=== PATIENT | male | born 1975 | race Caucasian/White ===

== ENCOUNTER 2018-08-17 11:55 | Emergency (ER) | payer OTHER ==
[~2018-08-17] VITALS: Ht 188 cm; Wt 117.9 kg
[~2018-08-17 11:55] MED LIST: AMLODIPINE BESY10 MG PO; ASPIRIN EC81 M1 PO; HYDROCHLOROTH12.5 MG PO; HYDROCODON-ACE1 EAC5 PO; LISINOPRIL30 MG PO; PROTONIX40 M2 PO; SIMVASTATIN40 MG PO
[2018-08-17 12:43] LABS: ABSOLUTE NEUTROPHILS 4.7 thou/uL (1.4-8.2); BASOPHILS 0.4 % (0.0-2.0); EOSINOPHILS 4.4 % (0.0-3.0); HEMATOCRIT 42.1 % (42.0-52.0); HEMOGLOBIN 14.6 gm/dL (14.0-18.0); LYMPHOCYTES 31.1 % (24.0-44.0); MCH 29.2 pg (26.0-34.0); MCHC 34.6 g/dL (28.0-37.0); MCV 84.4 fL (80.0-100.0); MONOCYTES 6.5 % (1.0-8.0); PLATELET COUNT 280 thou/uL (150-400); POLYS 57.6 % (36.0-66.0); RBC 4.99 mil/uL (4.50-6.00); RDW 12.9 % (10.5-14.5); WBC 8.1 thou/uL (4.0-11.0)
[2018-08-17 12:46] LABS: ANION GAP 8 mmol/L (7-16); BUN 9 mg/dL (7-18); CALCIUM 9.5 mg/dL (8.5-10.1); CHLORIDE 100 mmol/L (98-107); CO2 28 mmol/L (21-32); CREATININE 1.1 mg/dL (0.7-1.3); GLUCOSE 100 mg/dL (74-106); POTASSIUM 4.1 mmol/L (3.5-5.1); SODIUM 136 mmol/L (136-145)
[2018-08-17 12:52] LABS: ALBUMIN 4.1 g/dL (3.4-5.0); DIRECT BILIRUBIN < 0.1 mg/dL (<0.1-0.3); LIPASE 92 U/L (73-393); SGOT 26 U/L (15-37); SGPT 39 U/L (30-65); TOTAL BILIRUBIN 0.4 mg/dL (<0.1-1.0)
[2018-08-17 14:43] VITALS: BP 140/81
[2018-08-17] MEDS ORDERED: BENTYL 20 MG TA20 M1 PO (15:10)
== END 2018-08-17 15:25 | disposition home or self-care (01) ==
LOC: ER 11:55
PROVIDERS: Emergency Medicine
DX: K62.5 Hemorrhage of anus and rectum (principal); I10 Essential (primary) hypertension; E78.00 Pure hypercholesterolemia, unspecified; K21.9 Gastro-esophageal reflux disease without esophagitis; G47.30 Sleep apnea, unspecified; E78.5 Hyperlipidemia, unspecified; Z87.891 Personal history of nicotine dependence; Z88.1 Allergy status to other antibiotic agents; Z91.040 Latex allergy status

== ENCOUNTER 2018-10-31 03:27 | Emergency (ER) | payer OTHER ==
[~2018-10-31] VITALS: Ht 188 cm; Wt 113.4 kg
[~2018-10-31 03:27] MED LIST changes: +BENTYL 20 MG TA20 M1 PO
[2018-10-31] MEDS ORDERED: LISINOPRIL40 MG PO (04:12)
[2018-10-31] MEDS ORDERED: OMEPRAZOLE40 MG PO (04:13)
[2018-10-31] MEDS ORDERED: ZYRTEC10 M5 PO (04:13)
[2018-10-31] MEDS ORDERED: ATENOLOL 25 MG25 M1 PO (04:14)
[2018-10-31 04:18] LABS: ABSOLUTE NEUTROPHILS 6.3 thou/uL (1.4-8.2); BASOPHILS 0.9 % (0.0-2.0); LYMPHOCYTES 21.2 % (24.0-44.0); MCH 28.5 pg (26.0-34.0); MCHC 34.2 g/dL (28.0-37.0); MCV 83.6 fL (80.0-100.0); PLATELET COUNT 271 thou/uL (150-400); POLYS 64.9 % (36.0-66.0); RDW 12.9 % (10.5-14.5); WBC 9.7 thou/uL (4.0-11.0)
[2018-10-31 04:22] LABS: ANION GAP 9 mmol/L (7-16); BUN 14 mg/dL (7-18); CALCIUM 8.8 mg/dL (8.5-10.1); CHLORIDE 99 mmol/L (98-107); CO2 28 mmol/L (21-32); CREATININE 1.2 mg/dL (0.7-1.3); GLUCOSE 106 mg/dL (74-106); POTASSIUM 3.8 mmol/L (3.5-5.1); SODIUM 136 mmol/L (136-145)
[2018-10-31 04:31] LABS: TROPONIN-I <0.06 ng/mL (<0.06)
--- NOTE | 2018-10-31 08:35 | EKG ---
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 : 1975 Requested By: Tha Davis Order Number: [id number] MD: Patrick Garza Measurements Intervals [place] Rate: 73 P: 20 IN: 141 QRS: 47 QRSD: 92 T: 24 QT: 360 QTc: 397 Interpretive Statements Sinus rhythm Normal tracing Compared to ECG 11/27/2012 07:37:19 No significant change was found Electronically Signed On 10-31-2018 8:35:05 [employer] by Patrick Garza [email or web address] <ELECTRONICALLY SIGNED> By: Patrick Garza MD, [facility] 10/31/18 [id number] Patrick Garza MD, FACC /EPI
[2018-10-31 08:45] VITALS: BP 127/86
[2018-10-31] MEDS ORDERED: NAPROSYN500 MG PO (08:46)
[2018-10-31] MEDS ORDERED: NORCO 5-325 TA1 EACH PO (08:46)
== END 2018-10-31 08:56 | disposition home or self-care (01) ==
LOC: ER 03:27
PROVIDERS: Emergency Medicine
DX: M25.512 Pain in left shoulder (principal); M43.22 Fusion of spine, cervical region; M43.26 Fusion of spine, lumbar region; I10 Essential (primary) hypertension; E78.00 Pure hypercholesterolemia, unspecified; K21.9 Gastro-esophageal reflux disease without esophagitis; J45.909 Unspecified asthma, uncomplicated; G47.30 Sleep apnea, unspecified; Z98.890 Other specified postprocedural states; Z88.1 Allergy status to other antibiotic agents; Z91.040 Latex allergy status; Z87.891 Personal history of nicotine dependence

== ENCOUNTER 2019-01-02 08:53 | Emergency (ER) | payer OTHER ==
[~2019-01-02] VITALS: Ht 188 cm; Wt 113.4 kg
[~2019-01-02 08:53] MED LIST changes: +ATENOLOL 25 MG25 M1 PO; +LISINOPRIL40 MG PO; +NAPROSYN500 MG PO; +NORCO 5-325 TA1 EACH PO; +OMEPRAZOLE40 MG PO; +ZYRTEC10 M5 PO
[2019-01-02 09:57] LABS: URINE BILIRUBIN NEGATIVE (Negative); URINE BLOOD NEGATIVE (Negative); URINE CLARITY CLEAR; URINE COLOR YELLOW; URINE GLUCOSE-RANDOM* NEGATIVE (Negative); URINE KETONES NEGATIVE (Negative); URINE LEUKOCYTES NEGATIVE (Negative); URINE NITRITE NEGATIVE (Negative); URINE PROTEIN (DIPSTICK) NEGATIVE (Negative); URINE SPECIFIC GRAVITY 1.025 (1.005-1.035); URINE UROBILINOGEN 0.2 E.U./dl (0.2-1.0)
[2019-01-02 10:28] LABS: ABSOLUTE NEUTROPHILS 3.3 thou/uL (1.4-8.2); BASOPHILS 1.2 % (0.0-2.0); EOSINOPHILS 4.7 % (0.0-3.0); HEMATOCRIT 40.8 % (42.0-52.0); HEMOGLOBIN 13.8 gm/dL (14.0-18.0); MCH 28.5 pg (26.0-34.0); MCHC 33.8 g/dL (28.0-37.0); MCV 84.3 fL (80.0-100.0); MONOCYTES 8.1 % (1.0-8.0); PLATELET COUNT 257 thou/uL (150-400); RBC 4.84 mil/uL (4.50-6.00); RDW 13.3 % (10.5-14.5); WBC 5.8 thou/uL (4.0-11.0)
[2019-01-02 10:36] LABS: CALCIUM 9.2 mg/dL (8.5-10.1); CREATININE 0.9 mg/dL (0.7-1.3); POTASSIUM 3.9 mmol/L (3.5-5.1)
[2019-01-02] MEDS ORDERED: HYDROCODONE-AP1 EAC6 PO (15:07)
[2019-01-02 15:35] VITALS: BP 134/62
== END 2019-01-02 15:30 | disposition home or self-care (01) ==
LOC: ER 08:53
PROVIDERS: Emergency Medicine
DX: M54.5 Low back pain (principal); I10 Essential (primary) hypertension; E78.00 Pure hypercholesterolemia, unspecified; K21.9 Gastro-esophageal reflux disease without esophagitis; J45.909 Unspecified asthma, uncomplicated; G47.30 Sleep apnea, unspecified; Z88.1 Allergy status to other antibiotic agents; Z91.040 Latex allergy status; Z87.891 Personal history of nicotine dependence

== ENCOUNTER 2019-02-06 11:14 | Emergency (ER) | payer OTHER ==
[~2019-02-06] VITALS: Ht 188 cm; Wt 113.4 kg
[~2019-02-06 11:14] MED LIST changes: +HYDROCODONE-AP1 EAC6 PO
[2019-02-06] MEDS ORDERED: NORCO 10-325 T1 EACH PO (13:09)
[2019-02-06 13:42] VITALS: BP 132/91
== END 2019-02-06 13:42 | disposition home or self-care (01) ==
LOC: ER 11:14
DX: S16.1XXA Strain of muscle, fascia and tendon at neck level, initial encounter (principal); S20.219A Contusion of unspecified front wall of thorax, initial encounter; I10 Essential (primary) hypertension; E78.00 Pure hypercholesterolemia, unspecified; K21.9 Gastro-esophageal reflux disease without esophagitis; J45.909 Unspecified asthma, uncomplicated; G47.30 Sleep apnea, unspecified; Z87.891 Personal history of nicotine dependence; Z88.1 Allergy status to other antibiotic agents; Z91.040 Latex allergy status; V43.52XA Car driver injured in collision with other type car in traffic accident, initial encounter; Y93.89 Activity, other specified; Y92.89 Other specified places as the place of occurrence of the external cause; Y99.8 Other external cause status